=== PATIENT | female | born 1980 | race Caucasian/White ===

== ENCOUNTER 2021-05-25 11:26 | Day surgery (SDC) | payer OTHER ==
[2021-05-22 16:03] VITALS: BMI 34.0
[2021-05-25 13:39] VITALS: TEMP 98.2
[2021-05-25 13:47] VITALS: BP 124/75; PULSE 74
== END 2021-05-25 13:47 | disposition home or self-care (01) ==
LOC: FASU-ENDO 11:26
PROVIDERS: ATTEND Internal Medicine Gastroenterology
PROC: 0DBN8ZX Excision of Sigmoid Colon, Via Natural or Artificial Opening Endoscopic, Diagnostic (ICD-10-PCS; principal; 2021-05-25 13:06)
DX: D12.5 Benign neoplasm of sigmoid colon (principal); K64.0 First degree hemorrhoids; R10.9 Unspecified abdominal pain
CPT/HCPCS: 81025; 88305-TC